=== PATIENT | female | born 1985 | race Two or more races ===

== ENCOUNTER 2018-03-12 19:48 | Inpatient (IN) | payer OTHER ==
[2018-03-12 20:06] VITALS: BMI 33.9
[2018-03-12] MEDS: Lactated Ringer's 1,000 ML IV SCH ×2 (21:00→22:00)
[2018-03-12 21:08] LABS: BASO # 0.1 K/uL (0.0-0.2); BASO % 0.5 % (0.0-2.0); EOS # 0.1 K/uL (0.0-0.7); EOS % 0.3 % (0.0-4.0); LYMPH # 1.7 K/uL (1.0-4.3); LYMPH % 11.8 % (20.0-40.0); MEAN CELL VOLUME 92.4 fl (81.0-99.0); MEAN CORPUSCULAR HGB CONC 33.5 g/dL (33.0-37.0); MEAN PLATELET VOLUME 10.1 fl (7.2-11.7); MONO # 1.2 K/uL (0.0-0.8); MONO % 8.1 % (0.0-10.0); NEUT # 11.6 K/uL (1.8-7.0); NEUT % 79.3 % (50.0-75.0); RBC 4.18 Mil/uL (3.80-5.20); RED CELL DISTRIBUTION WIDTH 13.8 % (11.5-14.5); WHITE BLOOD COUNT 14.6 K/uL (4.8-10.8)
--- NOTE | 2018-03-13 01:26 | OBADHP ---
Datetime: 03/13/2018 01:10 Presentation-Admit: Vertex FHR - Baseline A Provider: 120 Amniotic Fluid Color, Provider: Clear Membranes, Provider: Ruptured Contraction Comments Provider: occ NICHD Variability Prov Fetus A: Moderate 6-25bpm NICHD Accel Fetus A IP Provider: 15X15 FHR Category Provider Fetus A: Category I NICHD Decel Fetus A IP Provider: None Dilatation, Provider: 3 Effacement, Provider: 90 Station, Provider: -1 Datetime: 03/12/2018 20:30 Pelvic Type - PN: Adequate Extremities - PN: Normal Abdomen - PN: Normal Back - PN: Normal Breast - PN: Not Done Lungs - PN: Normal Heart - PN: Normal Thyroid - PN: Not Done Neurologic - PN: Normal HEENT - PN: Normal General - PN: Normal IP Hx Assessment: The History has been Reviewed and is Current Vital Signs Provider: Reviewed; Within Normal Limits IP Chief Complaint: Uterine contractions; Suspected ruptured membranes Genitourinary Exam: Normal DTRs - PN: Not Done IP Admit Plan: Admit to unit; Initiate labor protocol Datetime: 03/12/2018 20:15 Admit Comment, IP Provider: 33 yo EGKiersten 40.2 presents with CTX and ROM. She reports CTX starting 2 hours prior to admission and occuring approximately every 3 minutes. ROM occured 45 minutes after C TX and color was pink. She denies vaginal bleed. ROS: Denies: dizzines, headaches, CP/SOB/N/V, dysuria care: Dr. Ramires - chart rev'd ob: Denies significant events during this pmhx: none famhx: endometriosis, mental health disorders, HTN, CAD soc: lives with ; Denies: smoking, alcohol, illicit drugs Surg hx: none NKDA meds: PNV General: pleasant, in no acute distress HEENT: normocephalic, PERRLA; AAOx3 Heart: no murmurs, regular rate and rhythm, S1, S2 normal. Lungs: clear to auscultation bilaterally, no wheezing Abdomen: nontender, gravid CVA: negative Lower extremities: negative for pitting edema 33 yo IUP 40.2 -Admit for labor progression -Labs: CBC, Type and screen, hiv, rpr, Case d/w Dr. Leroy Moreno MD PGY1 OB hospitalist note: Pt seen and examined. Agree with PGY1 note - latnet phase of labor - discuss ion about latent/active labor, pain medicatoin options, labor management incl Pitocin augmentation, d elivery and care...after discussion, willl observe labor progress Pool Provider: Positive IP Adm Impression: Term, intrauterine ; No Active Labor; Ruptured Membranes
--- NOTE | 2018-03-13 01:28 | OBPN ---
Datetime: 03/13/2018 01:10 IP Progress Impression: Normal progression of labor; Reassuring heart rate IP Informed Consent Obtain: Vaginal Delivery; Risks, Benefits and Alternatives Discussed IP Progress Plan: Continue present management; Augmentation; Anticipate Vaginal Delivery Membranes, Provider: Ruptured Amniotic Fluid Color, Provider: Clear Contraction Comments Provider: occ FHR - Baseline A Provider: 120 Presentation-Admit: Vertex IP Progress Note Comment: She is feeling more CTX pain... Ambulating/does not want pitocin at this time...pain management discussed. present/supportive NICHD Accel Fetus A IP Provider: 15X15 FHR Category Provider Fetus A: Category I NICHD Variability Prov Fetus A: Moderate 6-25bpm Dilatation, Provider: 3 Effacement, Provider: 90 Station, Provider: -1 NICHD Decel Fetus A IP Provider: None Datetime: 03/12/2018 20:30 Vital Signs Provider: Reviewed; Within Normal Limits Datetime: 03/12/2018 20:15 Pool Provider: Positive
--- NOTE | 2018-03-13 04:37 | OBPN ---
Datetime: 03/13/2018 04:15 IP Progress Impression: Normal progression of labor; Reassuring heart rate IP Informed Consent Obtain: Vaginal Delivery; Risks, Benefits and Alternatives Discussed IP Progress Plan: Augmentation; Anticipate Vaginal Delivery Pool Provider: Positive Membranes, Provider: Ruptured FHR - Baseline A Provider: 120 Presentation-Admit: Vertex IP Progress Note Comment: She feesl CTX pain; manageable with Nitrous A: latnet phase of labor PLAN: now she agrees to start Pitocin augmentation - medicatoins dicsussed... NICHD Accel Fetus A IP Provider: 15X15 FHR Category Provider Fetus A: Category I NICHD Variability Prov Fetus A: Moderate 6-25bpm Dilatation, Provider: 4 Effacement, Provider: 90 Station, Provider: -1 NICHD Decel Fetus A IP Provider: None
[2018-03-13] MEDS ORDERED: Lactated Ringer's 1,000 ML IV SCH (08:45)
[2018-03-13] MEDS: Lactated Ringer's 1,000 ML IV SCH ×2 (12:00→13:00)
[2018-03-13] MEDS ORDERED: Fentanyl/Bupivacaine HCl 250 ML EPI ONE (12:10)
[2018-03-13] MEDS ORDERED: Bupivacaine HCl 0.25% PF (10 ml) Inj ONE (12:11)
[2018-03-13] MEDS ORDERED: Benzocaine/Menthol SPRAY TOP PRN ×3 (18:03→20:27)
[2018-03-13] MEDS ORDERED: Oxycodone/Acetaminophen 5/325 mg Tab PO PRN ×3 (18:03→20:27)
--- NOTE | 2018-03-13 18:20 | OBDS ---
DELIVERY PERSONNEL Delivery Doctor: Abhilash Ramires MD Sr. Consultant: Ervin Polanco RN/ Lucas Bey RN Anesthesiologist: Dr. Valles/Dr Chandler Resident: Vaishali Mayfield MATERNAL INFORMATION Delivery Anesthesia: Epidural Medications in Delivery: Pitocin 30 units Estimated Blood Loss (ml): 400 Placenta Cultured: No Maternal Complications: None Provider Comments: Delivered live baby boy at 5:05 PM the baby was bulb suctioned on the perineum an d transferred to the maternal chest. The cord was clamped and cut 3 vessels noted. Cord blood was obt ained and sent to the lab. The placenta was delivered at 5:10 PM intact, there was a second degree la ceration, a right-sided sulcus tear. The repair was approximated with 2-0 rapide. Estimated blood los s was 400 mL, the mother tolerated the procedure well the baby was taken to the well-baby nursery wit h Apgars of 9 and 9 LABOR SUMMARY EDC: 03/10/2018 00:00 No. Babies in Womb: 1 Attempted: No Labor Anesthesia: Epidural LABOR INFORMATION Onset of Labor: 03/13/2018 05:00 Complete Dilatation: 03/13/2018 14:00 Group B Beta Strep: Negative Steroids Given: None Reason Steroids Not Administered: Not Applicable MEMBRANES Membranes Rupture Method: Spontaneous Rupture of Membranes: 03/12/2018 18:45 Length of Rupture (hrs): 22.33 Amniotic Fluid Color: Clear Amniotic Fluid Amount: Moderate Amniotic Fluid Odor: Normal STAGES OF LABOR Stage 1 hrs: 9 Stage 1 min: 0 Stage 2 hrs: 3 Stage 2 min: 5 Stage 3 hrs: 0 Stage 3 min: 5 Total Time in Labor hrs: 12 Total Time in Labor min: 10 VAGINAL DELIVERY Episiotomy: None Laceration Extension: Second Degree Laceration Repair: Yes Initial Vag Sponge Count: 10 laps _ 10 4x4's Final Vag Sponge Count: 10 laps _ 10 4x4's Initial Vag Sharps Count: 5 Final Vag Sharps Count: 5 Sponge Count Correct: Yes Sharps Count Correct: Yes Count Comment: Count correct and acknowledged by Dr Ramires BABY A INFORMATION Delivery Date/Time: 03/13/2018 17:05 Method of Delivery: Vaginal Born in Route : No : N/A Forceps: N/A Vacuum Extraction: N/A Shoulder Dystocia : No SHOULDER DYSTOCIA BABY A Delivery Date/Time: 03/13/2018 17:05 PRESENTATION/POSITION BABY A Presentation: Cephalic Cephalic Presentation: Vertex Breech Presentation: N/A PLACENTA INFORMATION BABY A Placenta Delivery Time : 03/13/2018 17:10 Placenta Method of Delivery: Spontaneous Placenta Status: Delivered SCORES BABY A Heart Rate 1 min: >100 bpm Resp Effort 1 min: Good Cry Reflex Irritability 1 min: Cough or Sneeze or Pulls Away Muscle Tone 1 min: Active Motion Color 1 min: Body [place], Extremities Blue Resuscitation Effort 1 min: Tactile Stimulation SCORE 1 MIN: 9 Heart Rate 5 min: >100 bpm Resp Effort 5 min: Good Cry Reflex Irritability 5 min: Cough or Sneeze or Pulls Away Muscle Tone 5 min: Active Motion Color 5 min: Body [place], Extremities Blue Resuscitation Effort 5 min: N/A SCORE 5 MIN: 9 INFORMATION BABY A Gestational Age at Delivery: 40.3 Gestational Status: Post-term Outcome : Liveborn Condition : Stable Infant Sex: Male IDENTIFICATION/MEDS BABY A ID Band Number: [id number] ID Band Location: Left Leg; Left Arm Vitamin K Given : Not Given Erythromycin Given: Not Given WEIGHT/LENGTH BABY A Infant Birthweight (gms): 4075 Infant Weight (lb): 9 Weight (oz): 0 Infant Length Inches: 21.00 Length cms: 53.3 CORD INFORMATION BABY A No. Cord Vessels: 3 Nuchal Cord : N/A Nuchal Cord Other: N/A True Knot: 0 Infant Cord pH Baby Arterial: N/A Cord pH Baby Venous: N/A Cord Blood Taken: Yes Banking/Donate Info: N/A Infant Suction: Mouth; Nose ASSESSMENT BABY A Complications: None Physical Findings at Delivery: Within Normal Limits Physical Findings Other: Baby had small BM (meconium) Infant Respirations: Appears Normal Supply Chain Planner/ALS Called : No Care By: Ervin Polanco RN/ Lucas Bey RN Transferred To: Remains with Mother
[2018-03-14 06:43] LABS: HEMOGLOBIN 10.2 g/dL (12.0-16.0); MEAN CELL VOLUME 93.2 fl (81.0-99.0); MEAN CORPUSCULAR HEMOGLOBIN 30.9 pg (27.0-31.0); MEAN CORPUSCULAR HGB CONC 33.1 g/dL (33.0-37.0); RBC 3.29 Mil/uL (3.80-5.20); RED CELL DISTRIBUTION WIDTH 14.6 % (11.5-14.5); WHITE BLOOD COUNT 19.6 K/uL (4.8-10.8)
[2018-03-14] MEDS ORDERED: Multivitamin With Minerals Tab PO SCH (09:00)
[2018-03-14] MEDS: Multivitamin With Minerals Tab PO SCH (10:01)
[2018-03-15] MEDS: Multivitamin With Minerals Tab PO SCH (09:37)
--- NOTE | 2018-03-15 17:52 | OBPPN ---
Datetime: 03/15/2018 17:37 PP Pain Prov: Within normal limits PP Nausea Prov: Denies PP Flatus Prov: Yes PP BM Prov: Yes PP Breasts Prov: Normal PP Heart Prov: Normal PP Lungs Prov: Normal PP Abdomen/Uterus Prov: Normal PP Lochia Prov: Normal PP Extremities Prov: Normal PP Progress Prov: Normal PP Comments Phys Exam Prov: hgb 10.2 PP Progress Note Prov: s: Tolerating regular diet. +perineal pain @ suture site. i:s/p doing well p: d/c home perinela care, sitz baths d/w pt rx pnv, yamilka hernandez, s_ [id number] advised pt to increase fiber intake Vital Signs Provider PP: Within Normal Limits
--- NOTE | 2018-03-15 17:54 | OBDCSUM ---
Datetime: 03/15/2018 11:30 Discharged to, Provider: Home Follow up at, Provider: Ena Disch Instr Activity: Normal activity Disch Instr Diet: Regular Discharge Instructions, Provider: Routine instructions given Discharge Diagnosis, Provider: Term Delivered Discharge Time: 03/15/2018 14:31 Follow up in weeks, Provider: 4-6 weeks. Discharge Instruct Comment, Prov: pp Disch Activity Restrictions: No sexual activity; Nothing in vagina - [place], tampons, douche Discharge Comment, Provider: p: d/c home perinela care, sitz baths d/w pt rx pnv, yamilka hernandez, s_ [id number] advised pt to increase fiber intake
[2018-03-15 19:53] VITALS: BP 113/64; PULSE 81; RESP 20; TEMP 98.6; O2SAT 98
== END 2018-03-15 14:31 | disposition home or self-care (01) | DRG 775 ==
LOC: H.EROB2 19:48 → H.L&D 20:27 → H.OB/GYN 03-13 19:50
PROVIDERS: ADMIT Obstetrics & Gynecology; ATTEND Obstetrics & Gynecology
PROC: 4A1HXCZ Monitoring of Products of Conception, Cardiac Rate, External Approach (ICD-10-PCS; 2018-03-12)
PROC: 10E0XZZ Delivery of Products of Conception, External Approach (ICD-10-PCS; principal; 2018-03-13)
PROC: 0KQM0ZZ Repair Perineum Muscle, Open Approach (ICD-10-PCS; 2018-03-13)
DX: O48.0 Post-term pregnancy (principal); O70.1 Second degree perineal laceration during delivery; Z37.0 Single live birth; O77.0 Labor and delivery complicated by meconium in amniotic fluid; Z3A.40 40 weeks gestation of pregnancy